=== PATIENT | male | born 1990 | race Caucasian/White ===

== ENCOUNTER 2016-09-17 15:35 | Inpatient (IN) | payer OTHER ==
[~2016-09-17] VITALS: Ht 172.7 cm; Wt 70.1 kg
[2016-09-17 17:45] VITALS: BP 120/82; PULSE 103; RESP 16; TEMP 98.9
[2016-09-17] MEDS ORDERED: LORazepam 1 MG TAB PO PRN (17:45)
[2016-09-17] MEDS ORDERED: MAGNESIUM HYDROXIDE SUSP 30 ML CUP PO PRN (17:45)
[2016-09-17] MEDS ORDERED: ALUMINUM/MAGNESIUM/SIMETH 30 ML CUP PO PRN (17:45)
[2016-09-17] MEDS ORDERED: ACETAMINOPHEN 325 MG TAB PO PRN (17:45)
[2016-09-17] MEDS ORDERED: LORazepam 2 MG/ML VIAL IM PRN (17:45)
[2016-09-17] MEDS: REMOVE OLD NICOTINE PATCH T-DERMAL SCH (20:59)
[2016-09-18 05:23] VITALS: BP 104/58; PULSE 95; RESP 16; TEMP 98; O2SAT 99
[2016-09-18 07:53] LABS: ANION GAP 7 MEQ/L (5-15); BICARBONATE 29.5 MEQ/L (21.0-32.0); BLOOD UREA NITROGEN 11 MG/DL (7-18); CHLORIDE 101 MEQ/L (98-107); GLOMERULAR FILTRATION RATE 81 ML/MIN (>89); POTASSIUM 3.8 MEQ/L (3.5-5.1); SODIUM (NA) 137 MEQ/L (136-145)
[2016-09-18 07:55] LABS: HDL CHOLESTEROL 59.2 MG/DL (40.0-60.0); LDL CHOLESTEROL 58 MG/DL (0-99)
[2016-09-18] MEDS: NICOTINE 21 MG/24 HR PATCH T-DERMAL SCH (09:00)
--- NOTE | 2016-09-18 11:59 | HHI.HP ---
Provisional Diagnosis Admission Date Sep 17, 2016 at 15:35 [place] I. Adjustment disorder with mixed emotions depression and anxiety [place] II. No diagnosis [place] III. Please see the emergency room evaluation from [facility] [place] IV. Moderate stress difficulty coping [place] V. GAF of 45 Certification of Person's Competence To Provide Express and Informed Consent I have personally examined Terrence Kramer , a person being served at [facility] on, Sep 18, 2016 11:51. Express and informed consent means consent voluntarily given in writing, by a competent person, after sufficient explanation and disclosure of the subject matter involved to enable the person to make a knowing and willful decision without any element of force, fraud, deceit, duress, or other form of constraint or coercion. This person is 18 years of age or older, is not now known to be incompetent to consent to treatment with a guardian advocate, and does not have a health care surrogate or proxy currently making medical treatment decisions. I have found this person to be one of the following: [x] Competent to provide express and informed consent, as defined above, for voluntary admission to this facility and is competent to provide express and informed consent for treatment. He/she has the consistent capacity to make well reasoned, willful, and knowing decisions concerning his or her medical or mental health treatment. The person fully and consistently understands the purpose of the admission for examination/placement and is fully capable of personally exercising all rights assured under [place] Incompetent to provide express and informed consent to voluntary admission, and this is incompetent to provide express and informed consent to treatment. The person must be transferred to involuntary status and a petition for a guardian advocate filed with the Circuit Court. [] Refusing to provide express and informed consent to voluntary admission but is competent to provide express and informed consent for treatment. The person must be discharged or transferred to involuntary status. Form shall be completed within 24 hours of a person's arrival at the receiving facility and filed in the clinical record of each person: 1. Admitted on a voluntary basis 2. Permitted to provide express and informed consent to his/her own treatment 3. Allowed to transfer from involuntary to voluntary status 4. Prior to permitting a person to consent to his or her own treatment after having been previously found incompetent to consent to treatment. History of Present Illness Capacity: Has Capacity HPI This is a 26-year-old white male who was admitted under March act from [facility] . Patient claimed that he was working at the [employer] and started to feel anxious nervous guilty and thinking his own thoughts loud and feeling overwhelmed at that point they called the ambulance and was brought to the hospital and he was March acted to come here. Patient claimed that when he was about 20 he had seen a psychiatrist and taken medication but he stopped taking it. He has been sleeping fairly well denied any suicidal ideation intentions or plan. Denied any auditory or visual hallucinations. No paranoia. Patient also reported that he hasn't he was drinking and need to stop. This has been going on for the last 6 months. Review of Systems Except as stated in HPI: all other systems reviewed are Neg Psychiatric: COMPLAINS OF: Anxiety, Mood changes, Depression Past Psych History Psychological trauma history Patient denied any physical verbal or sexual abuse growing up Violence risk - others (6 mos) Denies Violence risk - self (6 mos) Denied any suicidal ideation intentions or plan Substance Abuse History Drugs/Alcohol past 12 months Admits to alcohol abuse Past Family Social History Current Medications Medications (Trade) Dose Ordered Sig/Bam Route Start Time Stop Time Status Last Admin (Ativan) 1 mg Q6H PRN PO 09/17/16 17:45 (Ativan Inj) 1 mg Q6H PRN IM 09/17/16 17:45 (Tylenol) 650 mg Q4H PRN PO 09/17/16 17:45 (Milk Of Magnesia Liq) 30 ml DAILY PRN PO 09/17/16 17:45 (Mag-Al Plus Susp Liq) 30 ml Q6H PRN PO 09/17/16 17:45 (Habitrol 21 Mg Patch.24 Hr) 1 patch DAILY T-DERMAL 09/18/16 09:00 Miscellaneous Information 1 HS T-DERMAL 09/17/16 21:00 Family History Negative for any emotional difficulty nervous breakdown or suicide attempt his grandfather had a problem drinking Social History Patient was born in [place]. He has 2 brothers and one sister. His parents were . He was not close to his father. He is closer to his mother. His childhood was described as happy denied any physical verbal or sexual abuse growing up. He quit in 10th grade and did his GED and couple of years of college. He works as a [employer] but he does admit to occasionally drinking alcohol. This is his first psychiatric hospitalization. His grandfather had a problem drinking Patient's Strengths (min. 2) Patient is cooperative and willing to take the medication and signed voluntary Physical Exam Please see the emergency room evaluation patient denies any physical complaints his vital signs are stable Vital Signs Vital Signs Date Time Temp Pulse Resp B/P Pulse Ox O2 Delivery O2 Flow Rate FiO2 09/18/16 05:23 98.0 95 16 104/58 99 Mental Status Examination This is a 26-year-old white male who looks about the same as his stated age was alert oriented 3 cooperative casually dressed. His speech was clear spontaneous without any evidence of loose association. His mood was described as feeling somewhat anxious and nervous and worried and depressed. But denied any suicidal and/or homicidal ideation intentions or plan. His affect was restricted. He denied any auditory or visual hallucinations. Denied any paranoid delusion. He seems to be of average intelligence with fairly good memory his insight is fair and his judgment seems to be okay on hypothetical situation. His gait is normal his language is normal his fund of knowledge is average Assessment & Plan Problem List: (1) adjustment disorder with mixed emotions depression and anxiety Assessment & Plan Estimated LOS: 5 days. This is a 26-year-old white male who was admitted under March act from [facility]. Patient claimed that he was feeling anxious nervous and depressed and was drinking. He needs some help. We'll stabilize him and work as an outpatient. Admitted to observe evaluate and treatment. Patient is willing to sign voluntary. Patient will participate in all the therapeutic activity on the floor. nursing services manager to assist in aftercare and discharge planning. Side effect another alternative treatment were explained to the patient. Request HC Surrog/Guard Advoc?: No Laureano Murray MD Sep 18, 2016 11:59
[2016-09-18 12:26] LABS: HEMOGLOBIN A1a 1.1 %; HEMOGLOBIN A1b 1.2 %; HEMOGLOBIN Ao 87.5 %; HEMOGLOBIN LA1C 1.8 %; HEMOGLOBIN P3 3.2 %
--- NOTE | 2016-09-18 15:36 | PD.CONS ---
HPI Service [facility] Consult Requested By Psychiatry team Reason for Consult Medical management alcohol withdrawal Primary Care Physician Unknown Diagnoses: History of Present Illness Patient is a 26-year-old male with primary medical history of depression/ anxiety who came into the hospital under March act from [facility]. As per report, patient was working at [employer] and started to feel anxious skilled is getting his thoughts out loud and feeling overwhelmed. Patient is now admitted to inpatient psychiatric unit for further evaluation. Consulted for medical management of alcohol withdrawal. Patient states he had a mental breakdown, anxiety attack that got him to the hospital. He states he doesn't drink every day but when he does he binge drink. He states he drinks about 2 times a week when he gets very anxious usually, finishes a bottle of wine. Denies any medical history or surgical history. Otherwise, denies pain and discomfort. Denies SOB/ dyspnea. Denies chest pain, palpitations, headaches, dizziness. Denies fevers, chills, n/v/d. Denies any tremors, or shaking. Review of Systems Other Negative except for what is noted on history of present illness. Past Family Social History Allergies: Coded Allergies: No Known Allergies (Unverified , 09/18/16) Past Medical History Denies any medical history Past Surgical History Denies any surgical history Reported Medications None Active Ordered Medications Current Medications Medications (Trade) Dose Ordered Sig/Bam Route Start Time Stop Time Status Last Admin (Ativan) 1 mg Q6H PRN PO 09/17/16 17:45 (Ativan Inj) 1 mg Q6H PRN IM 09/17/16 17:45 (Tylenol) 650 mg Q4H PRN PO 09/17/16 17:45 (Milk Of Magnesia Liq) 30 ml DAILY PRN PO 09/17/16 17:45 (Mag-Al Plus Susp Liq) 30 ml Q6H PRN PO 09/17/16 17:45 (Habitrol 21 Mg Patch.24 Hr) 1 patch DAILY T-DERMAL 09/18/16 09:00 Miscellaneous Information 1 HS T-DERMAL 09/17/16 21:00 (SEROquel) 50 mg HS PO 09/18/16 21:00 Family History States grandfathers alcoholic. Otherwise denies any other family medical history Social History Alcohol use - binge drinking Denies tobacco use Denies illicit drug use Physical Exam Vital Signs Vital Signs Date Time Temp Pulse Resp B/P Pulse Ox O2 Delivery O2 Flow Rate FiO2 09/18/16 05:23 98.0 95 16 104/58 99 09/17/16 17:45 98.9 103 16 120/82 Physical Exam GENERAL: This is a well-nourished, well-developed patient, in no apparent distress. SKIN: No rashes, ecchymoses or lesions. Cool and dry. HEAD: Atraumatic. Normocephalic. No temporal or scalp tenderness. EYES: Pupils equal round and reactive. Extraocular motions intact. No scleral icterus. No injection or drainage. ENT: Nose without bleeding. Throat without erythema. Uvula midline. Airway patent. NECK: Trachea midline. No JVD or lymphadenopathy. Supple, nontender, no meningeal signs. CARDIOVASCULAR: Regular rate and rhythm without murmurs, gallops, or rubs. RESPIRATORY: Clear to auscultation. Breath sounds equal bilaterally. No wheezes , rales, or rhonchi. GASTROINTESTINAL: Abdomen soft, non-tender, nondistended. No guarding. Bowel sounds active 4 MUSCULOSKELETAL: Extremities without clubbing, cyanosis, or edema. No joint tenderness, effusion, or edema noted. No calf tenderness. Negative Homans sign bilaterally. NEUROLOGICAL: Awake and alert. Cranial nerves II through XII intact. Motor and sensory grossly within normal limits. Five out of 5 muscle strength in all muscle groups. Normal speech. Very minimal tremors noted left hand. Laboratory Laboratory Tests Test 09/18/16 06:52 Sodium Level 137 Potassium Level 3.8 Chloride Level 101 Carbon Dioxide Level 29.5 Anion Gap 7 Blood Urea Nitrogen 11 Creatinine 1.12 Estimat Glomerular Filtration 81 Rate Random Glucose 93 Hemoglobin A1c 4.8 Calcium Level 8.9 Triglycerides Level 124 Cholesterol Level 142 LDL Cholesterol 58 HDL Cholesterol 59.2 Cholesterol/HDL Ratio 2.39 Result Diagram: 09/18/16 0652 Assessment and Plan Problem List: (1) adjustment disorder with mixed emotions depression and anxiety Status: Acute (2) Engages in binge consumption of alcohol ICD Code: F10.10 Status: Acute Assessment and Plan Patient is a 26-year-old male who came in under March act from [facility]. Admitted to inpatient psychiatry unit. Consulted for medical management alcohol withdrawal. Adjustment disorder depression/anxiety - managed by psychiatry team Alcohol binge consumption - patient doesn't have any significant tremors during assessment. Does not drink daily. But engages in binge drinking twice a week admits to being anxious when he binge drink. Alcohol consumption related to anxiety and depression. Patient was counseled. Does not appear to be having withdrawals. Last binge drink was prior to hospitalization. Labs reviewed no significant abnormality except for EGFR 81 possibly related to some dehydration. Encourage by mouth fluid intake. Thank you for this consultation. Stable from Hospitalist standpoint. We will sign off. Reconsult as needed. Written by Shauna Johnson, acting as scribe for Dr. Martínez on 09/18/16 at 13:35. The documentation accurately reflects the work performed [id number] by me, Alex aMrtínez D.O on 09/18/16 at 13:35. Code Status Full code Discussed Condition With Patient, nursing Shauna Eckert Sep 18, 2016 15:36 Nay Martínez DO Sep 18, 2016 19:46
[2016-09-18 19:00] VITALS: BP 131/86; PULSE 82; RESP 16; TEMP 98.6; O2SAT 99
[2016-09-18] MEDS: REMOVE OLD NICOTINE PATCH T-DERMAL SCH (21:00)
[2016-09-18] MEDS: QUEtiapine FUMARATE 25 MG TAB PO SCH (21:36)
[2016-09-19 06:23] VITALS: BP 116/69; PULSE 76; RESP 17; TEMP 96.9
[2016-09-19] MEDS: NICOTINE 21 MG/24 HR PATCH T-DERMAL SCH (09:00)
--- NOTE | 2016-09-19 11:02 | HHI.PYPN ---
Subjective Remarks Patient was seen and discussed with the staff nurse icu resource team. Patient reported that he has been feeling much better. He slept well. He feels like back to his normal self. He has more energy. He denied any suicidal ideation intentions or plan. He denied any auditory or visual hallucinations. No side effects were complained. He is compliant in taking medication. Continue with the same treatment Review of Systems Except as stated in HPI: all other systems reviewed are Neg Psychiatric: COMPLAINS OF: Mood changes, Depression Objective Alert: Yes [place]: Person, Place, Date, Situation Mood: Calm, Depressed Affect: Restricted Memory Intact: Comment (not formerly tested but seems fairly intact) Hallucinations: Other (patient denied any active auditory or visual hallucinations) Delusions: No Delusion Type: Other (no obvious delusional belief reported) Suicidal: Ideation (denies any suicidal ideation intentions or plan) Homicidal: Ideation (denies) Insight/Judgement Fair Vitals/IOs Vital Signs Date Time Temp Pulse Resp B/P Pulse Ox O2 Delivery O2 Flow Rate FiO2 09/19/16 06:23 96.9 76 17 116/69 09/18/16 19:00 99 Assessment & Plan Problem List: (1) adjustment disorder with mixed emotions depression and anxiety Assessment & Plan Estimated LOS: days Justification for Cont. Inpt. Monitoring of the medication Request HC Surrog/Guard Advoc?: No Laureano Murray MD Sep 19, 2016 11:02
[2016-09-19 18:00] VITALS: BP_SYST 105; BP_SYST 122; BP_DIAS 57; BP_DIAS 82; PULSE 73; PULSE 81; RESP 18; TEMP 97.9; TEMP 98; O2SAT 98
[2016-09-19] MEDS: REMOVE OLD NICOTINE PATCH T-DERMAL SCH (21:00)
[2016-09-19] MEDS: QUEtiapine FUMARATE 25 MG TAB PO SCH (21:00)
[2016-09-20 05:30] VITALS: BP 104/56; PULSE 97; RESP 18; TEMP 97.9; O2SAT 97
[2016-09-20] MEDS: NICOTINE 21 MG/24 HR PATCH T-DERMAL SCH (09:00)
--- NOTE | 2016-09-20 10:58 | HHI.PYPN ---
Subjective Remarks Patient was seen and discussed with the staffing director. Patient claimed that he has been feeling much better with the medication. He is able to sleep better. He is not anxious or nervous. He denied any suicidal ideation intentions or plan. Denied any auditory or visual hallucinations. No side effects were complained. Advised to continue with the same treatment. vp client services to assist in aftercare and discharge planning Review of Systems Except as stated in HPI: all other systems reviewed are Neg Psychiatric: COMPLAINS OF: Mood changes, Depression Objective Alert: Yes [place]: Person, Place, Date, Situation Mood: Calm, Depressed Affect: Restricted Memory Intact: Comment (not formerly tested but seems fairly intact) Hallucinations: Other (patient denied any active auditory or visual hallucinations) Delusions: No Delusion Type: Other (no obvious delusional belief reported) Suicidal: Ideation (denies any suicidal ideation intentions or plan) Homicidal: Ideation (denies) Insight/Judgement Fair Vitals/IOs Vital Signs Date Time Temp Pulse Resp B/P Pulse Ox O2 Delivery O2 Flow Rate FiO2 09/19/16 18:00 98.0 73 18 105/57 98 Assessment & Plan Problem List: (1) adjustment disorder with mixed emotions depression and anxiety Assessment & Plan Estimated LOS: days Justification for Cont. Inpt. Monitoring of the medication Request HC Surrog/Guard Advoc?: No Laureano Murray MD Sep 20, 2016 10:58
[2016-09-20 18:46] VITALS: BP 123/75; PULSE 86; RESP 18; TEMP 98; O2SAT 100
[2016-09-20] MEDS: QUEtiapine FUMARATE 25 MG TAB PO SCH (21:00)
[2016-09-20] MEDS: REMOVE OLD NICOTINE PATCH T-DERMAL SCH (21:00)
[2016-09-21 05:00] VITALS: BP 104/56; PULSE 97; RESP 18; TEMP 97.9; O2SAT 97
[2016-09-21] MEDS: NICOTINE 21 MG/24 HR PATCH T-DERMAL SCH (09:00)
--- NOTE | 2016-09-21 10:32 | HHI.DS ---
Psychiatry Discharge Summary Inpatient Psychiatric care?: Yes Advance Directive: No Reason Not Provided: Due to Patient Condition Mental Health AdvanceDirective: No Health Care Proxy: No Admission Admission Date Sep 17, 2016 at 15:35 Admission Diagnosis: (1) adjustment disorder with mixed emotions depression and anxiety GAF Score: 45 Brief History This is a 26-year-old white male who was admitted under March act from [facility] . Patient claimed that he was working at the [employer] and started to feel anxious nervous guilty and thinking his own thoughts loud and feeling overwhelmed at that point they called the ambulance and was brought to the hospital and he was March acted to come here. Patient claimed that when he was about 20 he had seen a psychiatrist and taken medication but he stopped taking it. He has been sleeping fairly well denied any suicidal ideation intentions or plan. Denied any auditory or visual hallucinations. No paranoia. Patient also reported that he hasn't he was drinking and need to stop. This has been going on for the last 6 months. Tobacco Use In Past 30 Days: No Tobacco Past 30 Days Alcohol Use: 2-3 Times Per Week Hospital Course Patient was started on supportive treatment. He persevered in all the therapeutic activity on the floor. His medication was adjusted. He started to feel better. Willing to follow-up as an outpatient and take the medication. Denied any suicidal ideation intentions or plan. Denied any auditory or visual hallucinations. He was feeling hopeful about the future at that point arrangements are made for him to be discharged Results Blood Pressure 104 / 56 Vital Signs Date Time Temp Pulse Resp B/P Pulse Ox O2 Delivery O2 Flow Rate FiO2 09/21/16 05:00 97.9 97 18 104/56 97 Laboratory Results Test 09/18/16 06:52 Hemoglobin A1c 4.8 % (4.3-6.0) Triglycerides Level 124 MG/DL (42-150) Cholesterol Level 142 MG/DL (120-200) LDL Cholesterol 58 MG/DL (0-99) HDL Cholesterol 59.2 MG/DL (40.0-60.0) Summary of Major Lab Results Nothing significant Summary of Procedures None Imaging None Pending results at discharge: No Medications # of Antipsychotic meds at D/C: 1 Appropriate >1 Antipsych meds?: 2 Approp Antipsych med options 1 - Minimum of three failed multiple trials of monotherapy. Discharge Discharge Date: Sep 21, 2016 Discharge Diagnosis: (1) adjustment disorder with mixed emotions depression and anxiety Diagnosis: Principal Mental Status Exam at Disch Patient was alert reported 3 cooperative casually dressed. His speech was clear spontaneous without any evidence of loose association. Denied any suicidal ideation intentions or plan. Denied any auditory or visual hallucinations. Willing to take the medication and follow-up as an outpatient no side effects were complained Pt Condition on Discharge: Stable Discharge Disposition: Discharge Home Discharge Instructions Diet Instructions: As Tolerated, No Restrictions Activities you can perform: Regular-No Restrictions Scheduled Appointment: Tonny Monk Discharge Time <= 30 minutes Discharge/Advance Care Plan Health Problems: (1) adjustment disorder with mixed emotions depression and anxiety Goals to promote your health * To prevent worsening of your condition and complications * To maintain your health at the optimal level Directions to meet your goals Take your medications as prescribed Follow your dietary instruction Follow activity as directed Keep your appointments as scheduled Take your immunizations and boosters as scheduled If your symptoms worsen call your PCP, if no PCP go to Urgent Care Center or Emergency Room For 19/03 questions related to your inpatient stay or results of tests pending at discharge, please contact Dr. Laureano Murray at Smoking is Dangerous to Your Health. Avoid second hand smoking Laureano Murray MD Sep 21, 2016 10:32
[2016-09-21] MEDS ORDERED: QUET1TAB7 PO (10:33)
[2016-09-21] MEDS ORDERED: QUET1TAB8 PO (11:08)
[2016-09-21] MEDS ORDERED: QUEtiapine FUMARATE 25 MG TAB PO SCH (21:00)
== END 2016-09-21 16:10 | disposition home or self-care (01) | DRG 882 ==
LOC: H260 15:35
PROVIDERS: ADMIT Psychiatry & Neurology Psychiatry; ATTEND Psychiatry & Neurology Psychiatry
DX: F43.23 Adjustment disorder with mixed anxiety and depressed mood (principal); F10.239 Alcohol dependence with withdrawal, unspecified
CPT/HCPCS: 80048; 80061; 83036